=== PATIENT | female | born 1980 | race Caucasian/White ===

== ENCOUNTER → 2019-08-23 | Outpatient (CLI) | payer BC ==
[~2019-08-23] MED LIST: ACYC400 PO; DOCU100 PO; Dyazide 37.5-21 EACH PO; IBUP800 PO; LABE100 PO; Percocet 5-3251 EACH PO
[2019-08-25 15:07] LABS: HPV 16 Negative (Negative); HPV 18 Negative (Negative); HPV OTHER HR TYPES Negative (Negative)
== END ==
LOC: LAB SHORT 16:50 → LAB 16:50
PROVIDERS: Obstetrics & Gynecology
DX: Z01.419 Encounter for gynecological examination (general) (routine) without abnormal findings (principal)
CPT/HCPCS: 87624; G0123